=== PATIENT | female | born 1955 | race Caucasian/White ===

== ENCOUNTER 2019-09-12 22:54 | Emergency (ER) | payer BC ==
[2019-09-12] MEDS ORDERED: diphenhydrAMINE 50 MG/ML SDV IVPUSH ONE (23:17)
[2019-09-12] MEDS ORDERED: Ondansetron 4 MG/2 ML SDV IVPUSH ONE (23:17)
[2019-09-12] MEDS ORDERED: Sodium Chloride 0.9% 1,000 ML IV ONE (23:17)
[2019-09-12] MEDS ORDERED: Sodium Chloride 0.9% 10 ML Syringe FLUSH PRN (23:18)
[2019-09-12] MEDS ORDERED: Sodium Chloride 0.9% 2.5 ML Syringe FLUSH PRN (23:18)
[2019-09-12] MEDS ORDERED: Meclizine 25 MG Tab PO ONE (23:18)
--- NOTE | 2019-09-12 23:22 | EDM.PDOC ---
ED HPI GENERAL MEDICAL PROBLEM - General Chief Complaint: Neurological Problem Stated Complaint: DIZZINESS Time Seen by Provider: 09/12/19 23:04 - History of Present Illness INITIAL COMMENTS - FREE TEXT/NARRATIVE: HISTORY AND PHYSICAL: History of present illness: The patient is a 64-year-old female who has a history of Graves' disease for which she takes beta blockers and chronic pain issues for which she was seeing a pain specialist but after relocating here is now only seeing Dr. Melgoza at [facility], and who presents with onset of dizziness and feeling off balance /loss of equilibrium that started when she woke this morning. Patient tells me she was treated for a sinus infection and finished her antibiotics a week ago but still feels like she's somewhat plugged up and still has nasal drainage. She had a normal day yesterday and when she awoke this morning she immediately felt somewhat lightheaded and off balance when she got out of bed to walk around. She says she feels somewhat drunk but is not experiencing spinning and she has not fallen or passed out. She has no complaints of headache neck pain back pain chest pain shortness of breath palpitations nausea vomiting or diarrhea. She said because of this feeling off balance she has not eaten very much today and has not had much of an appetite. She has no specific weakness numbness or tingling in her extremities and is not specifically going off to one side but does feel a little more comfortable if she keeps her head still and sits upright with her eyes closed. Movement of her head will trigger her symptoms and makes her feel bad. She says that if she moves her head to the right the symptoms are worse and she does feel like she does go off to the right side a little bit more with ambulating but is not sure. She currently is asymptomatic sitting in the bed and she tells me that she doesn't have a history of hypertension but when she was at the dentist a week ago she was told that her blood pressure was borderline at 140s over 90s. Review of systems: As per history of present illness and below otherwise all systems reviewed and negative. Past medical history: As per history of present illness and as reviewed below otherwise noncontributory. Surgical history: As per history of present illness and as reviewed below otherwise noncontributory. Social history: No reported history of drug or alcohol abuse. Family history: As per history of present illness and as reviewed below otherwise noncontributory. Physical exam: General: Well-developed well-nourished female who is nontoxic and vital signs are noted by me. She is speaking clearly and easily in ED and is in no distress as long as she keeps her head still and is sitting upright. HEENT: Atraumatic, normocephalic, pupils reactive, negative for conjunctival pallor or scleral icterus, mucous membranes moist, throat clear, neck supple, nontender, trachea midline. No cervical adenopathy or nuchal rigidity and no discrete sinus tenderness on palpation. There is some mild nystagmus with gaze to the left and when the patient moves her head to the right she does feel more symptomatic. TMs are dulled bilaterally and there is some cerumen in the external canal but no mastoid tenderness or erythema Lungs: Clear to auscultation, breath sounds equal bilaterally, chest nontender. Heart: S1S2, regular rate and rhythm no overt murmurs Abdomen: Soft, nondistended, nontender. Negative for masses or hepatosplenomegaly. Negative for costovertebral tenderness. Pelvis: Stable nontender. Genitourinary: Deferred. Rectal: Deferred. Extremities: Atraumatic, negative for cords or calf pain. Neurovascular unremarkable. No pedal edema or leg asymmetry and full range of motion Neuro: Awake, alert, oriented. Cranial nerves II through XII unremarkable. Cerebellum unremarkable. Motor and sensory unremarkable throughout. Exam nonfocal. Diagnostics: EKG CBC CMP troponin TSH UA with reflex CT scan of the head and sinuses Therapeutics: IV O2 monitor IV fluids Zofran and Benadryl Patient feels much improved and has been up in the ED ambulating without feeling off balance. Her repeat blood pressure has normalized naturally to 133/ 75. She would like to try to go home and I will give her Antivert and a Medrol Dosepak for home and advised her to also take Benadryl. History the advised her on reasons to return to the ED and to follow-up with Dr. Melgoza in the clinic and she states understanding Impression: Dizziness, vertiginous symptoms improved Definitive disposition and diagnosis as appropriate pending reevaluation and review of above. - Related Data Allergies Allergy/AdvReac Type Severity Reaction Status Date / Time No Known Allergies Allergy Verified 09/12/19 23:05 Home Meds: Home Meds ALPRAZolam [Alprazolam] 0.25 mg PO BEDTIME 01/12/19 [History] Hydrocodone/Acetaminophen [[place] 10-325 Tablet] 10 - 325 mg PO TID 01/12/19 [ History] Methimazole [Tapazole] 2.5 mg PO DAILY 01/12/19 [History] Metoprolol Succinate [Toprol Xl] 100 mg PO BID 01/12/19 [History] Nortriptyline 20 mg PO BEDTIME 01/12/19 [History] Omeprazole 20 mg PO ASDIRECTED 01/12/19 [History] oxyCODONE HCl [Oxycontin] 60 mg PO DAILY 01/12/19 [History] oxyCODONE HCl [Oxycontin] 120 mg PO BEDTIME 01/12/19 [History] Naproxen Sodium [Aleve] 220 mg PO DAILY PRN 09/12/19 [History] Psyllium [Metamucil] 0.5 gm PO DAILY 09/12/19 [History] Past Medical History HEENT History: Reports: Impaired Vision Cardiovascular History: Reports: Hypertension Gastrointestinal History: Reports: None FACILITIES LOCATOR History: Reports: Endocrine/Metabolic History: Reports: Other (See Below) Other Endocrine/Metabolic History: graves dse, "hyperactive thyroid" - Infectious Disease History Infectious Disease History: Reports: Chicken Pox - Past Surgical History HEENT Surgical History: Reports: None Cardiovascular Surgical History: Reports: None GI Surgical History: Reports: Appendectomy, Cholecystectomy, Hernia, Inguinal Endocrine Surgical History: Reports: None Social & Family History - Family History Family Medical History: Noncontributory - Tobacco Use Smoking Status *Q: Current Every Day Smoker Years of Tobacco use: 43 Packs/Tins Daily: 0.2 - Caffeine Use Caffeine Use: Reports: Coffee - Recreational Drug Use Recreational Drug Use: No ED ROS GENERAL - Review of Systems Review Of Systems: Comprehensive ROS is negative, except as noted in HPI. ED EXAM, GENERAL - Physical Exam Exam: See Below (See dictation) Course - Vital Signs Last Recorded V/S: Last Vital Signs Temp 36 C 09/13/19 01:32 Pulse 77 09/13/19 01:32 Resp 18 09/13/19 01:32 BP 135/75 09/13/19 01:32 Pulse Ox 95 09/13/19 01:32 - Orders/Labs/Meds Orders: Active Orders 24 hr Category Date Time Status Cardiac Monitoring [RC] . DIRECTED Care 09/12/19 23:17 Active EKG Documentation Completion [RC] STAT Care 09/12/19 23:17 Active Oxygen Therapy, ED [RC] ASDIRECTED Care 09/12/19 23:17 Active Pulse Oximetry [RC] ASDIRECTED Care 09/12/19 23:17 Active Sodium Chloride 0.9% [Saline Flush] Med 09/12/19 23:18 Active 10 ml FLUSH ASDIRECTED PRN Sodium Chloride 0.9% [Saline Flush] Med 09/12/19 23:18 Active 2.5 ml FLUSH ASDIRECTED PRN Saline Lock Insert [OM.PC] Stat Oth 09/12/19 23:17 Ordered Medication Orders Sodium Chloride (Saline Flush) 10 ml FLUSH ASDIRECTED PRN PRN Reason: Keep Vein Open Sodium Chloride (Saline Flush) 2.5 ml FLUSH ASDIRECTED PRN PRN Reason: Keep Vein Open Labs: Laboratory Tests 09/12/19 09/12/19 09/13/19 Range/Units 23:15 23:15 00:40 WBC 8.98 (4.0-11.0) K/uL RBC 4.03 L (4.30-5.90) M/uL Hgb 13.2 (12.0-16.0) g/dL Hct 38.9 (36.0-46.0) % MCV 96.5 (80.0-98.0) fL MCH 32.8 H (27.0-32.0) pg MCHC 33.9 (31.0-37.0) g/dL RDW Std Deviation 44.6 (28.0-62.0) fl RDW Coeff of Emma 13 (11.0-15.0) % Plt Count 277 (150-400) K/uL MPV 9.80 (7.40-12.00) fL Neut % (Auto) 56.9 (48.0-80.0) % Lymph % (Auto) 33.7 (16.0-40.0) % Webb % (Auto) 6.2 (0.0-15.0) % Eos % (Auto) 3.0 (0.0-7.0) % Baso % (Auto) 0.2 (0.0-1.5) % Neut # (Auto) 5.1 (1.4-5.7) K/uL Lymph # (Auto) 3.0 H (0.6-2.4) K/uL Webb # (Auto) 0.6 (0.0-0.8) K/uL Eos # (Auto) 0.3 (0.0-0.7) K/uL Baso # (Auto) 0.0 (0.0-0.1) K/uL Nucleated RBC % 0.0 /100WBC Nucleated RBCs # 0 K/uL Sodium 139 (136-145) mmol/L Potassium 3.5 (3.5-5.1) mmol/L Chloride 105 (98-107) mmol/L Carbon Dioxide 25.3 (21.0-32.0) mmol/L BUN 16 (7.0-18.0) mg/dL Creatinine 0.9 (0.6-1.0) mg/dL Est Cr Clr Drug Dosing 50.60 mL/min Estimated GFR (MDRD) > 60.0 ml/min Glucose 197 H (74-106) mg/dL Calcium 9.1 (8.5-10.1) mg/dL Total Bilirubin 0.6 (0.2-1.0) mg/dL AST 31 (15-37) IU/L ALT 20 (14-63) IU/L Alkaline Phosphatase 96 (46-116) U/L Troponin I < 0.050 (0.000-0.056) ng/mL Total Protein 7.4 (6.4-8.2) g/dL Albumin 3.8 (3.4-5.0) g/dL Globulin 3.6 (2.6-4.0) g/dL Albumin/Globulin Ratio 1.1 (0.9-1.6) TSH 3rd Generation 0.95 (0.36-3.74) uIU/mL Urine Color YELLOW Urine Appearance CLEAR Urine pH 6.0 (5.0-8.0) Ur Specific [place] <= 1.005 (1.001-1.035) Urine Protein NEGATIVE (NEGATIVE) mg/dL Urine Glucose (UA) NEGATIVE (NEGATIVE) mg/dL Urine Ketones NEGATIVE (NEGATIVE) mg/dL Urine Occult Blood NEGATIVE (NEGATIVE) Urine Nitrite NEGATIVE (NEGATIVE) Urine Bilirubin NEGATIVE (NEGATIVE) Urine Urobilinogen 0.2 (<2.0) EU/dL Ur Leukocyte Esterase NEGATIVE (NEGATIVE) Meds: Medications Generic Name Dose Route Start Last Admin Trade Name Freq PRN Reason Stop Dose Admin Sodium Chloride 10 ml 09/12/19 23:18 Saline Flush FLUSH ASDIRECTED PRN Keep Vein Open Sodium Chloride 2.5 ml 09/12/19 23:18 Saline Flush FLUSH ASDIRECTED PRN Keep Vein Open Discontinued Medications Generic Name Dose Route Start Last Admin Trade Name Freq PRN Reason Stop Dose Admin Diphenhydramine HCl 50 mg 09/12/19 23:17 09/12/19 23:33 Benadryl IVPUSH 09/12/19 23:18 50 mg ONETIME ONE Administration Sodium Chloride 1,000 mls @ 999 mls/hr 09/12/19 23:17 09/12/19 23:33 Normal Saline IV 09/13/19 00:17 999 mls/hr STAT ONE Administration Meclizine HCl 25 mg 09/12/19 23:18 09/12/19 23:33 Antivert PO 09/12/19 23:19 25 mg ONETIME ONE Administration Ondansetron HCl 4 mg 09/12/19 23:17 09/12/19 23:33 Zofran IVPUSH 09/12/19 23:18 4 mg ONETIME ONE Administration Departure - Departure Time of Disposition: 01:53 Disposition: Home, Self-Care 01 Condition: Good Clinical Impression: Dizziness, Vertigo - Discharge Information Referrals: Camron Melgoza MD [Primary Care Provider] - Forms: ED Department Discharge Additional Instructions: The following information is given to patients seen in the emergency department who are being discharged to home. This information is to outline your options for follow-up care. We provide all patients seen in our emergency department with a follow-up referral. The need for follow-up, as well as the timing and circumstances, are variable depending upon the specifics of your emergency department visit. If you don't have a primary care physician on staff, we will provide you with a referral. We always advise you to contact your personal physician following an emergency department visit to inform them of the circumstance of the visit and for follow-up with them and/or the need for any referrals to a consulting specialist. The emergency department will also refer you to a specialist when appropriate. This referral assures that you have the opportunity for followup care with a specialist. All of these measure are taken in an effort to provide you with optimal care, which includes your followup. Under all circumstances we always encourage you to contact your private physician who remains a resource for coordinating your care. When calling for followup care, please make the office aware that this follow-up is from your recent emergency room visit. If for any reason you are refused follow-up, please contact the [facility] emergency department at and ask to speak to the emergency department charge nurse. [address] [place] [address] Please call and schedule a follow-up appointment this week with Dr. Melgoza in the clinic or one of his associates for further care and reevaluation. Use medications as prescribed and also add [id number] Benadryl as we discussed. Push hydration and return to ER as needed and as discussed - My Orders Last 24 Hours: My Active Orders 09/12/19 23:17 Cardiac Monitoring [RC] . DIRECTED EKG Documentation Completion [RC] STAT Oxygen Therapy, ED [RC] ASDIRECTED Pulse Oximetry [RC] ASDIRECTED Saline Lock Insert [OM.PC] Stat 09/12/19 23:18 Sodium Chloride 0.9% [Saline Flush] 10 ml FLUSH ASDIRECTED PRN Sodium Chloride 0.9% [Saline Flush] 2.5 ml FLUSH ASDIRECTED PRN - Assessment/Plan Last 24 Hours: My Active Orders 09/12/19 23:17 Cardiac Monitoring [RC] . DIRECTED EKG Documentation Completion [RC] STAT Oxygen Therapy, ED [RC] ASDIRECTED Pulse Oximetry [RC] ASDIRECTED Saline Lock Insert [OM.PC] Stat 09/12/19 23:18 Sodium Chloride 0.9% [Saline Flush] 10 ml FLUSH ASDIRECTED PRN Sodium Chloride 0.9% [Saline Flush] 2.5 ml FLUSH ASDIRECTED PRN
--- NOTE | 2019-09-12 23:57 | CT ---
INDICATION: Pain/vertigo. TECHNIQUE: CT head without contrast. COMPARISON: None. FINDINGS: CSF spaces: Within normal limits for age. Brain parenchyma and extra-axial spaces: The obrien-white differentiation is normal. No sign of mass, hemorrhage, or midline shift. No extra-axial fluid collection. Skull base and calvarium: The visualized paranasal sinuses and mastoid air cells demonstrate no acute or significant findings. The visualized orbits are grossly unremarkable. No skull fractures. IMPRESSION: Unremarkable noncontrast head CT. Please note that all CT scans at this facility use dose modulation, iterative reconstruction, and/or weight-based dosing when appropriate to reduce radiation dose to as low as reasonably achievable. Dictated by Neel Ca MD @ Sep 12 2019 11:51PM Signed by Dr. Neel Ca @ Sep 12 2019 11:55PM
--- NOTE | 2019-09-12 23:59 | CT ---
INDICATION: Pain/vertigo. TECHNIQUE: CT sinus without contrast. COMPARISON: None. FINDINGS: Paranasal sinuses: Moderate mucosal thickening present in both maxillary sinuses. Remainder of the paranasal sinuses are clear. No fluid levels. The ostiomeatal units are narrowed bilaterally. The fovea ethmoidalis and orbital wiley are intact. The nasal septum is midline and intact. The nasal turbinates are normal. Orbits and globes: Unremarkable. Visualized intracranial contents: Unremarkable. Soft tissues: Unremarkable. IMPRESSION: Moderate inflammatory changes in both maxillary sinuses. No fluid levels to suggest acute sinusitis. Remainder of the exam is unremarkable. Please note that all CT scans at this facility use dose modulation, iterative reconstruction, and/or weight-based dosing when appropriate to reduce radiation dose to as low as reasonably achievable. Dictated by Neel Ca MD @ Sep 12 2019 11:55PM Signed by Dr. Neel Ca @ Sep 12 2019 11:58PM
[2019-09-13 00:02] LABS: BLOOD UREA NITROGEN,BUN 16 mg/dL (7.0-18.0); CARBON DIOXIDE,CO2 25.3 mmol/L (21.0-32.0); CHLORIDE,CL 105 mmol/L (98-107); GLUCOSE RANDOM 197 mg/dL (74-106); POTASSIUM,K 3.5 mmol/L (3.5-5.1); SODIUM,NA 139 mmol/L (136-145)
== END 2019-09-13 02:15 | disposition home or self-care (01) ==
LOC: MW.ED 22:54
DX: R42 Dizziness and giddiness (principal); I10 Essential (primary) hypertension; F17.210 Nicotine dependence, cigarettes, uncomplicated; Z79.899 Other long term (current) drug therapy
CPT/HCPCS: 36415; 70450; 70486; 80053; 81003; 84443; 84484; 85025; 93005; 96361; 96374; 96375; 99284; A9270; J1200; J2405; J7040; J7030

== ENCOUNTER → 2024-12-22 | Day surgery (SDC) | payer MEDICARE, OTHER ==
[~2024-12-22] MED LIST: Lidocaine 2% 5 ML SDV ONE; Propofol 200 MG/20 ML SDV ONE; Sodium Chloride 0.9% 10 ML Syringe FLUSH PRN; Sodium Chloride 0.9% 2.5 ML Syringe FLUSH PRN; Sodium Chloride 0.9% 20 ML SDV IV PRN
[2024-12-22] MEDS: Lactated Ringers 1,000 ML IV SCH (09:20)
== END ==
LOC: MW.SDS 08:50
PROVIDERS: ATTEND Surgery
DX: Z12.11 Encounter for screening for malignant neoplasm of colon (principal); Z86.0100 Personal history of colon polyps, unspecified; I10 Essential (primary) hypertension; F17.210 Nicotine dependence, cigarettes, uncomplicated; Z79.899 Other long term (current) drug therapy
CPT/HCPCS: 45380; 88305; J2003; J2704; J7120; 00811